=== PATIENT | female | born 1955 | race Caucasian/White ===

== ENCOUNTER 2016-09-11 17:19 | Outpatient (CLI) | payer OTHER ==
[2013-04-22 13:18] VITALS: BP 135/72
== END 2016-09-11 17:20 ==
LOC: LABRHC 17:19
PROVIDERS: ATTEND Physician Assistant
DX: R30.0 Dysuria (principal)
CPT/HCPCS: 87086

== ENCOUNTER 2016-09-23 14:48 | Outpatient (CLI) | payer OTHER ==
[2013-04-22 13:18] VITALS: BP 135/72
[2016-09-23 15:34] LABS: eGFR (African) > 60; eGFR (Non-African) > 60
== END 2016-09-23 14:50 ==
LOC: LAB 14:48
PROVIDERS: ATTEND Physician Assistant
DX: R35.0 Frequency of micturition (principal); R39.15 Urgency of urination
CPT/HCPCS: 36415; 80053

== ENCOUNTER 2017-02-03 16:07 | Outpatient (CLI) | payer OTHER ==
[2013-04-22 13:18] VITALS: BP 135/72
[2017-02-03 23:11] LABS: TOTAL PROTEIN 7.1 g/dL (6.0-8.5)
== END 2017-02-03 16:10 ==
LOC: LAB 16:07
PROVIDERS: ATTEND Physician Assistant
DX: R42 Dizziness and giddiness (principal)
CPT/HCPCS: 36415; 80053; 84484